=== PATIENT | male | born 1970 | race Caucasian/White ===

== ENCOUNTER → 2020-02-03 | Outpatient (CLI) | payer OTHER, MEDICAID | END | disposition home or self-care (01) | LOC: NPLAB 16:42 | PROVIDERS: ATTEND Specialist | DX: Z20.828 Contact with and (suspected) exposure to other viral communicable diseases (principal) | CPT/HCPCS: 87426; 87635 ==

== ENCOUNTER 2020-02-06 20:56 | Emergency (ER) | payer OTHER ==
[~2020-02-06] VITALS: Ht 180.3 cm; Wt 115.7 kg
[2020-02-06 21:07] VITALS: BP 170/103
--- NOTE | 2020-02-06 21:07 | NUR ---
ARRIVAL PT ARRIVED VIA WHEELCHAIR TO ER 1 WITH C/O CHEST PAIN AND RIGHT SHOULDER PAIN. PT STATES CHEST PAIN SINCE SUNDAY AND HAS GOTTEN WORSE SINCE. PT STATES LEFT SIDE CHEST PAIN THAT RADIATES TO RIGHT SHOULDER AND NECK. PT IS DIAPHORETIC UPON ARRIVAL. EDP NOTIFIED OF ARRIVAL.
[2020-02-06] MEDS ORDERED: ASPIRIN PO STA (21:16)
[2020-02-06] MEDS ORDERED: ASPIRIN ONE (21:16)
--- NOTE | 2020-02-06 21:20 | PCM.EKG ---
[facility] Test Date: 2020-02-06 Test Time: 21:08:45 Pat Name: MIKE ROSEN Department: Room: Gender: M Supervisor Corduroy Cutting: MAHENDRA : 1970 Requested By: LUZ CABRERA Order Number: [id number] Reading MD: Luz CABRERA Measurements Intervals [place] Rate: 103 P: 53 AL: 162 QRS: 31 QRSD: 106 T: 19 QT: 343 QTc: 449 Interpretive Statements Sinus tachycardia Baseline wander in lead(s) II,III,aVR,aVF,V1,V2,V3,V4,V5,V6 No previous ECG available for comparison Electronically Signed On 02-09-2020 22:24:51 PHOTOGRAPHIC SPOTTER by Luz CABRERA Please click the below link to view image of tracing.
--- NOTE | 2020-02-06 21:24 | NUR ---
REASSESS PT STATES PAIN HAS DECREASED FROM 9 TO 5. STATES PAIN HAS NOW MOVED FROM SHOULDER TO BACK BUT STILL STATES PAIN HAS LESSENED.
[2020-02-06 21:26] LABS: BASOPHIL % 0.2 % (0.0-0.2); LYMPHOCYTES # 1.07 10^3/uL1 (1.0-4.8); LYMPHOCYTES % 9.9 % (24.0-44.0); MEAN CORP HGB 30.6 pg (26-34); MONOCYTES # 0.4 10^3/uL (0.3-0.8); MONOCYTES % 4.1 % (5.0-12.0); NEUTROPHIL # 9.2 10^3/uL (1.8-7.7); NEUTROPHILS % 85.2 % (41.0-85.0); PLATELET COUNT 319 10^3/uL (150-400); RED CELL DISTRIBUTION WIDTH 12.7 % (11.5-14.5)
[2020-02-06] MEDS ORDERED: NITROSTAT SL PRN (21:30)
[2020-02-06 21:52] LABS: ALANINE AMINOTRANSFERASE(ML) 97 U/L (12-78); ALKALINE PHOSPHATASE 103 U/L (50-136); ASPARTATE AMINO TRANSFERASE 33 U/L (0-35); CALCIUM 9.8 mg/dL (8.4-10.5); CARBON DIOXIDE 22.7 mmol/L (20.0-32); GLUCOSE 231 mg/dL (70-110)
--- NOTE | 2020-02-06 21:55 | ER.PDOC ---
General Chief Complaint: Chest Pain-Cardiac Nature Stated Complaint: CHEST & SHOULDER PAIN Time seen by MD: 21:54 Source: patient Exam Limitations: no limitations History of Present Illness Initial Comments Chest pain for 5 days, no cough but SOB Severity/Quality: moderate, sharp Radiation: shoulders Activities at Onset: none Prior CP/Workup: Cardiac Cath Nitro Today/Relief: 0.4 mg x 1 Aspirin Today: 325 mg x 1, Provided By ED Associated Symptoms: shortness of breath Past Medical History Medical History: high cholesterol, hypertension, other Surgical History: no surgical history Social History Smoking: non-smoker Alcohol Use: occassionally Drug Use: none Constitutional: no symptoms reported EENTM: no symptoms reported Respiratory: see HPI Cardiovascular: see HPI Gastrointestinal: no symptoms reported All Other Systems: Reviewed and Negative Physical Exam General Appearance: Obese HEENT: PERRL/EOMI, Normal ENT Inspection, TMs Normal, Pharynx Normal Neck: Non-Tender, Full Range of Motion, Supple, Normal Inspection Respiratory: chest non-tender, normal breath sounds, no respiratory distress, no accessory muscle use, rhonchi Cardiovascular: Normal Peripheral Pulses, Regular Rate, Rhythm, No Edema, No Gallop, No JVD, No Murmur Gastrointestinal: Normal Bowel Sounds, No Organomegaly, No Pulsatile Mass, Non Tender, Soft Extremities: Normal Range of Motion, Non-Tender, Normal Inspection, No Pedal E mary, No Calf Tenderness, Normal Capillary Refill Neurologic/Psychiatric: commission broker II-XII NML as Tested, No Motor/Sensory Deficits, Alert, Normal Mood/Affect, Oriented x 3 Skin: Normal Color, Warm/Dry Results/Orders Results/Orders Orders - LUZ CABRERA MD Aspirin (Aspirin) (02/06/20 21:16) Cbc With Auto Diff (02/06/20 21:16) Comprehensive Metabolic Panel (02/06/20 21:16) Creatine Kinase (02/06/20 21:16) Creatine Kinase Mb (02/06/20 21:16) Troponin I (02/06/20 21:16) Probnp B-Type Nurse Practitioner Home Assessments (02/06/20 21:16) PT (02/06/20 21:16) Partial Thromboplastin Time. (02/06/20 21:16) D-Dimer (02/06/20 21:16) Ekg-Routine (02/06/20 21:16) Nitroglycerin (Nitrostat) (02/06/20 21:30) Aspirin (Aspirin) (02/06/20 21:16) Arterial Blood Gas (02/06/20 21:25) Vital Signs Date Time Temp Pulse Resp B/P (MAP) Pulse Ox O2 Delivery O2 Flow Rate FiO2 02/06/20 21:07 98.2 99 22 170/103 (125) 99 Room Air 02/06/20 21:07 98.2 99 22 99 02/06/20 21:07 98.2 99 22 Administered Medications Medications (Trade) Dose Ordered Sig/Hector Route PRN Reason Start Time Stop Time Status Last Admin Dose Admin Aspirin (Aspirin) 325 mg STAT STAT PO 02/06/20 21:16 02/06/20 21:19 DC 02/06/20 21:21 325 MG Nitroglycerin (Nitrostat) 0.4 mg PRN PRN SL CHEST PAIN 02/06/20 21:30 03/07/20 21:29 02/06/20 21:21 0.4 MG Laboratory Tests Test 02/06/20 21:05 02/06/20 21:40 White Blood Count 10.8 10^3/uL (4.5-11.0) Red Blood Count 5.23 10^6/uL (4.50-5.90) Hemoglobin 16.0 g/dL (13.9-16.3) Hematocrit 47.2 % (37.0-53.0) Mean Corpuscular Volume 90.2 fL (78-100) Mean Corpuscular Hemoglobin 30.6 pg (26-34) Mean Corpuscular Hemoglobin Concent 33.9 g/dL (33-36.5) Red Cell Distribution Width 12.7 % (11.5-14.5) Platelet Count 319 10^3/uL (150-400) Mean Platelet Volume 10.3 fL (7.8-11.0) Neutrophils (%) (Auto) 85.2 % (41.0-85.0) H Lymphocytes (%) (Auto) 9.9 % (24.0-44.0) L Monocytes (%) (Auto) 4.1 % (5.0-12.0) L Neutrophils # (Auto) 9.2 10^3/uL (1.8-7.7) H Lymphocytes # (Auto) 1.07 10^3/uL1 (1.0-4.8) Monocytes # (Auto) 0.4 10^3/uL (0.3-0.8) Absolute Immature Granulocyte (auto 0.07 10^3 u/L (0-2) Absolute Eosinophils (auto) 0.0 10^3/uL (0.0-0.2) Immature Granulocytes % 0.60 % (0.00-0.50) H Eosinophils % 0.0 % (0.0-5.0) Basophils % 0.2 % (0.0-0.2) Basophils # 0.0 10^3/uL (0.0-0.1) Prothrombin Time 9.9 SEC (9.3-11.3) Prothrombin Time INR (Non-Therap) 1.0 Activated Partial Thromboplast Time 23.6 SEC (24.67-30.72) D-Dimer < 0.19 mg/L (0.19-0.49) L Sodium Level 140 mmol/L (132-145) Potassium Level 3.9 mmol/L (3.6-5.2) Chloride Level 105.0 mmol/L (96-109) Carbon Dioxide Level 22.7 mmol/L (20.0-32) Anion Gap 16.2 Blood Urea Nitrogen 22 mg/dL (7-18) H Creatinine 1.06 mg/dL (0.59-1.40) Estimated GFR () 89.8 (>/=60) Est GFR (CKD-EPI)(Non-Afr [place]) 74.3 (>/=60) BUN/Creatinine Ratio 20.0 Glucose Level 231 mg/dL (70-110) H Calcium Level 9.8 mg/dL (8.4-10.5) Total Bilirubin 0.4 mg/dL (0.2-1.0) Aspartate Amino Transferase (AST) 33 U/L (0-35) Alanine Aminotransferase (ALT) 97 U/L (12-78) H Alkaline Phosphatase 103 U/L (50-136) Total Creatine Kinase 64 U/L (39-308) Creatine Kinase MB 0.9 ng/mL (0.5-3.6) Troponin I < 0.02 ng/mL (0.00-0.05) Pro-B-Type Natriuretic Peptide 14 pg/mL (0-125) Total Protein 8.0 g/dL (6.4-8.2) Albumin 4.6 g/dL (3.4-5.0) Globulin 3.4 Albumin/Globulin Ratio 1.352 Blood Gas Sample Site LEFT RADIAL ARTERY Blood pH 7.513 (7.350-7.450) Blood Gas PCO2 22.4 mmHg (35.0-45.0) L Blood Gas PO2 78.1 mmHg (80.0-100.0) L Blood Gas HCO3 17.6 mmol/L (22.0-26.0) L Blood Gas Base Excess -3.0 mmol/L (-2.0-2.0) L Tucker Test POSITIVE Arterial Blood Oxygen Saturation 96.4 % (94.0-97.00) Deoxyhemoglobin 3.6 % (0.0-5.0) Carboxyhemoglobin 0 % (0.0-3.9) Methemoglobin 0.3 % (0.00-5.0) Total Hemoglobin 15.4 % (12.0-17.8) Total Oxygen Concentration 20.8 % (13.5-17.5) H Blood Gas Temperature 37 FiO2 21 % (20-101) Total Carbon Dioxide 18.3 mmol/L (23-27) L Progress Progress CT Chest: :Variable lung findings, ranging from ground-glass opacities to patchy regions of consolidation and organizing pneumonia. Question risk factors for COVID-19 pneumonia, other infectious processes are in the differential. Involvement is rather mild Spoke with Dr. Griffiths who saw patient in the office 2 days ago. Patient has COVID-19 Pneumonia. He is currently On Z pack and Oxygen saturation is normal. Discussed with Dr. Griffiths who is okay with patient going home. His Ferritin level on labs done 3 days ago was high. Patient's [id number] has COVID-19. EKG/XRAY/CT/US EKG: NSR, no ST T wave changes EKG Comments: HR 103, sinus tachycardia ER DEPART Departure Time of Disposition: 22:34 Disposition: 01 HOME, SELF-CARE Impression: Primary Impression: Pneumonia due to COVID-19 virus Condition: Stable Referrals: MARINO GRIFFITHS MD (PCP) PRIMARY CARE PROVIDER Additional Instructions: Continue Z pack Vitamin C, D and Zinc OTC as directed F/U with your PCP in 2-3 days Return to ED if worsening or concerns Duration or Time Spent with Pa: 60 min RICK,LUZ Puga MD Feb 06, 2020 21:55
[2020-02-06 22:05] LABS: ABG PCO2 22.4 mmHg (35.0-45.0); ABG PH 7.513 (7.350-7.450); HCO3act 17.6 mmol/L (22.0-26.0); pO2 78.1 mmHg (80.0-100.0)
== END 2020-02-06 22:59 | disposition home or self-care (01) ==
LOC: ER 20:56
DX: U07.1 COVID-19 (principal); J12.89 Other viral pneumonia; I10 Essential (primary) hypertension; E78.00 Pure hypercholesterolemia, unspecified; Z79.82 Long term (current) use of aspirin
CPT/HCPCS: 36415; 36600; 80053; 82550; 82553; 82803; 83880; 84484; 85025; 85379; 85610; 85730; 93005; 99284

== ENCOUNTER → 2020-02-06 | Outpatient (CLI) | payer OTHER ==
--- NOTE | 2020-02-06 16:29 | DIREP ---
PROCEDURE:CT CHEST W/O COMPARISON:None. INDICATIONS:R05 COUGH, R50.9 FEVER TECHNIQUE:Helical sections through the chest were performed from the lung apices through the diaphragms without IV contrast. Sagittal and coronal reconstructions are obtained from source images. FINDINGS: LUNGS:There are mixed findings. There bilateral patchy opacities, some of which appear ground-glass. On the right side there is an "atoll" opacity right lower lobe. Findings are nonspecific, though correlation for risk factors of COVID-19 pneumonia recommended. Other viral illnesses and etiologies for what likely represents an infectious process. Central airways are patent. PLEURA:No effusion. No pneumothorax CARDIAC:Normal. No enlargement, pericardial thickening, or significant calcification. MEDIASTINUM:Normal. No mass or adenopathy. KHLOE:Normal. No mass or adenopathy. AORTA:Normal. No aneurysm. CHEST WALL:Normal. No mass or axillary adenopathy. LIMITED ABDOMEN:Normal. Limited images of the upper abdomen are unremarkable. BONES:Normal. No bony lesion or fracture. OTHER:Negative. CONCLUSION:Variable lung findings, ranging from ground-glass opacities to patchy regions of consolidation and organizing pneumonia. Question risk factors for COVID-19 pneumonia, other infectious processes are in the differential. Involvement is rather mild Dictated by: Elder Witt MD on 02/06/2020 at 04:22 PM
== END | disposition home or self-care (01) ==
LOC: RAD 15:19
PROVIDERS: ATTEND Specialist
DX: R05 Cough (principal); R50.9 Fever, unspecified
CPT/HCPCS: 71250

== ENCOUNTER 2020-03-09 06:05 | Day surgery (SDC) | payer OTHER ==
[2020-03-08 11:53] VITALS: BP 141/93
--- NOTE | 2020-03-08 12:06 | PCM.EKG ---
[facility] Test Date: 2020-03-08 Test Time: 13:03:25 Pat Name: MIKE ROSEN Department: Room: Gender: M Clinical Trial Coordinator: JOSEFA : 1970 Requested By: MARINO BURROWS Order Number: [id number] Reading MD: Measurements Intervals Premium Rate: 66 P: 24 WV: 150 QRS: 40 QRSD: 100 T: 12 QT: 382 QTc: 400 Interpretive Statements Normal sinus rhythm Compared to ECG 02/06/2020 21:08:45 Sinus tachycardia no longer present Please click the below link to view image of tracing.
--- NOTE | 2020-03-08 13:45 | DIREP ---
PROCEDURE:CHEST 2 VIEWS COMPARISON:[facility], CT, CT CHEST W/O, 02/06/2020, 04:11 PM. INDICATIONS:PRE-OP HEART CATH, CAD, ABNORMAL STRESS TEST FINDINGS: LUNGS/PLEURA:No consolidated pneumonia or pleural effusion is seen. Small ground-glass opacities demonstrated within both lungs on CT scan of 02/06/2020 are not definitely visualized. VASCULATURE:Normal. Unremarkable pulmonary vasculature. CARDIAC:Normal. No cardiac silhouette abnormality or cardiomegaly. MEDIASTINUM:Normal. No visible mass or adenopathy. BONES:Mild thoracic spondylosis is noted. OTHER:Negative. CONCLUSION: 1. No acute cardiopulmonary disease is demonstrated. 2. Previously demonstrated ground-glass infiltrates likely associated with Covid 19 viral pneumonia are not visible on today's exam. Dictated by: Krish Israel M.D. on 03/08/2020 at 01:42 PM
[2020-03-09] VITALS (11 sets, daily range): BP systolic 105–140; BP diastolic 69–89
[~2020-03-09] VITALS: Ht 182.9 cm; Wt 115.7 kg
[~2020-03-09 06:05] MED LIST: AMLO5TAB4 PO; METO-236 PO; METO50TA6 PO; MULT-235 PO; NS 1000ML 1,000 ML IV SCH; NS 1000ML 1,000 ML ONE; PHENERGAN ONE; PHENERGAN PO ONE; PRAM0.255 PO; PRAV40TA2 PO; VALIUM ONE; VALIUM PO ONE; VALIUM PO STA
[2020-03-09] MEDS ORDERED: NS 1000ML 1,000 ML ONE (06:30)
[2020-03-09] MEDS ORDERED: HEPARIN ONE (06:31)
[2020-03-09] MEDS ORDERED: SUBLIMAZE ONE (06:31)
[2020-03-09] MEDS ORDERED: VERSED ONE (06:31)
[2020-03-09] MEDS ORDERED: XYLOCAINE ONE (06:32)
--- NOTE | 2020-03-09 08:48 | CNH ---
DATE OF CONSULTATION: 03/09/2020 HEART CATH REPORT INDICATIONS: A 49-year-old male with hypertension, hypertensive heart disease, abnormal myocardial perfusion scan, dyslipidemia, obesity, recent COVID exposure improved, shortness of breath, unclear chest x-ray, abnormal myocardial perfusion scan with medium size inferoposterior and adjacent moderate persistent hypoperfusion, ejection fraction was intact. Increased end-diastolic volume. POST-CATH DIAGNOSES: Left main appears to be patent. LAD proximally has about 30% luminal irregularity long segment and the LAD is a 4-4.5 mm vessel and distal tapering is noted. No evidence of any flow obstruction is noted. Circumflex is a large codominant vessel, 4.5 mm vessel with an obtuse marginal branch, fully patent. Right coronary artery is a large vessel, appears to be fully patent. Left ventricle is mildly dilated with an LVEDP of about 15-20 mm with mild global hypokinesis, 45% ejection fraction. ANESTHESIA: 2% lidocaine. PREOPERATIVE MEDICATIONS: Phenergan 50 mg p.o., Valium 2.5 mg p.o., Versed 1 mg IV, fentanyl 25 mcg IV. ANTICOAGULATION: Heparin 2000 units intra-arterially, 2000 units in the flush solution, 1000 units in the dye solution. Dye used is Omnipaque. Total amount of the dye is 90 mL. CATHETERS: JL4 6-Kyrgyz, JR4 6-[place]gyz, 6-[place] angled pigtail catheter. ARTERIAL TIME: 8 minutes. FLUOROSCOPY TIME: 2.3 minutes. PROCEDURES: Left heart catheterization, bilateral selective coronary arteriography, left ventriculography by right femoral Ashly approach. Under local anesthesia, right femoral artery was punctured percutaneously by arterial needle, guide wire passed in right femoral artery, 6-[place] Cordis sheath introduced, side port of the sheath used for femoral arterial pressure monitoring. Sheath anchored with suture. Left Ashly catheter introduced over guide wire into ascending aorta left coronary artery cannulated and left coronary angiography performed in BHUTANESE and DIAZ projections with craniocaudal applications to visualize all branches. Left catheter exchanged for right coronary catheter and right coronary angiography performed in BHUTANESE and DIAZ. This catheter exchanged for 6-Kyrgyz pigtail catheter and catheter crossed the aortic valve and left ventricular LVEDP measured and LV gram performed in 30 degrees DIAZ view with 30 mL Omnipaque dye and panning of descending aorta attempted. Patient tolerated procedure well. No complications of procedure. Angio-Seal deployed for hemostasis. LVEDP 20 mm, LV pressure is 157/20, femoral artery pressure 145/75 with a mean of 95. No gradient across the aorta on pullback of the central catheter. FINAL CONCLUSION: Non-flow obstructive proximal left anterior descending 30% luminal irregularity without any flow significant coronary artery disease with a large left anterior descending, circumflex, and right coronary vessel with left ventricle showing mild global hypokinesis due to hypertension, hypertensive heart disease with ejection fraction of 45%. RECOMMENDATIONS: Optimization of medical therapy with blood pressure control, lipid control, exercise, diet and weight loss. Laxmichand MD Aye DR: MUNA/morgan JOB# [id number]
[2020-03-09 10:33] LABS: CALCIUM 9.3 mg/dL (8.4-10.5); CARBON DIOXIDE 28.6 mmol/L (20.0-32)
--- NOTE | 2020-03-10 10:55 | CCLR ---
DATE OF PROCEDURE: 03/09/2020 HEART CATH REPORT INDICATIONS: A 49-year-old male with hypertension, hypertensive heart disease, abnormal myocardial perfusion scan, dyslipidemia, obesity, recent COVID exposure improved, shortness of breath, unclear chest x-ray, abnormal myocardial perfusion scan with medium size inferoposterior and adjacent moderate persistent hypoperfusion, ejection fraction was intact. Increased end-diastolic volume. POST-CATH DIAGNOSES: Left main appears to be patent. LAD proximally has about 30% luminal irregularity long segment and the LAD is a 4-4.5 mm vessel and distal tapering is noted. No evidence of any flow obstruction is noted. Circumflex is a large codominant vessel, 4.5 mm vessel with an obtuse marginal branch, fully patent. Right coronary artery is a large vessel, appears to be fully patent. Left ventricle is mildly dilated with an LVEDP of about 15-20 mm with mild global hypokinesis, 45% ejection fraction. ANESTHESIA: 2% lidocaine. PREOPERATIVE MEDICATIONS: Phenergan 50 mg p.o., Valium 2.5 mg p.o., Versed 1 mg IV, fentanyl 25 mcg IV. ANTICOAGULATION: Heparin 2000 units intra-arterially, 2000 units in the flush solution, 1000 units in the dye solution. Dye used is Omnipaque. Total amount of the dye is 90 mL. CATHETERS: JL4 6-Citizen Of [place], JR4 6-Citizen [place], 6-[place] angled pigtail catheter. ARTERIAL TIME: 8 minutes. FLUOROSCOPY TIME: 2.3 minutes. PROCEDURES: Left heart catheterization, bilateral selective coronary arteriography, left ventriculography by right femoral Ashly approach. Under local anesthesia, right femoral artery was punctured percutaneously by arterial needle, guide wire passed in right femoral artery, 6-Citizen [place] Cordis sheath introduced, side port of the sheath used for femoral arterial pressure monitoring. Sheath anchored with suture. Left Ashly catheter introduced over guide wire into ascending aorta left coronary artery cannulated and left coronary angiography performed in ROMANIAN and DIAZ projections with craniocaudal applications to visualize all branches. Left catheter exchanged for right coronary catheter and right coronary angiography performed in ROMANIAN and DIAZ. This catheter exchanged for 6-Citizen [place] pigtail catheter and catheter crossed the aortic valve and left ventricular LVEDP measured and LV gram performed in 30 degrees DIAZ view with 30 mL Omnipaque dye and panning of descending aorta attempted. Patient tolerated procedure well. No complications of procedure. Angio-Seal deployed for hemostasis. LVEDP 20 mm, LV pressure is 157/20, femoral artery pressure 145/75 with a mean of 95. No gradient across the aorta on pullback of the central catheter. FINAL CONCLUSION: Non-flow obstructive proximal left anterior descending 30% luminal irregularity without any flow significant coronary artery disease with a large left anterior descending, circumflex, and right coronary vessel with left ventricle showing mild global hypokinesis due to hypertension, hypertensive heart disease with ejection fraction of 45%. RECOMMENDATIONS: Optimization of medical therapy with blood pressure control, lipid control, exercise, diet and weight loss. Laxmichand MD Aye DR: MUNA/morgna JOB# [id number]
== END 2020-03-09 11:12 | disposition home or self-care (01) ==
LOC: SDC 06:05
PROVIDERS: ATTEND Specialist
DX: I25.118 Atherosclerotic heart disease of native coronary artery with other forms of angina pectoris (principal); I11.9 Hypertensive heart disease without heart failure; E78.5 Hyperlipidemia, unspecified; E66.9 Obesity, unspecified; Z82.49 Family history of ischemic heart disease and other diseases of the circulatory system; Z83.438 Family history of other disorder of lipoprotein metabolism and other lipidemia; Z79.899 Other long term (current) drug therapy; Z68.35 Body mass index [BMI] 35.0-35.9, adult
CPT/HCPCS: 36415 ×2; 71046; 80053; 85610; 85730; 93005; 93458; 99152; C1760; C1894 ×3; J1644 ×2; J2250; J3010; J7030 ×2; Q9967; C1769

== ENCOUNTER → 2020-03-31 | Outpatient (CLI) | payer OTHER ==
[~2020-03-31] MED LIST changes: -NS 1000ML 1,000 ML IV SCH; -NS 1000ML 1,000 ML ONE; -PHENERGAN ONE; -PHENERGAN PO ONE; -VALIUM ONE; -VALIUM PO ONE; -VALIUM PO STA
--- NOTE | 2020-03-31 17:01 | DIREP ---
PROCEDURE:US SOFT TISSUE COMPARISON:None. INDICATIONS:R10.31 RLQ PAIN, rt groin inguinal canal palp,radiating pain x2d TECHNIQUE:Sonography of the soft tissues of the right inguinal region was performed using grayscale and color Doppler imaging. FINDINGS: MASSES:None. FLUID COLLECTIONS:None. OTHER:Multiple lymph nodes with fatty jannet are identified within the right inguinal region, with the largest measuring 1.6 x 0.7 x 1.8 cm and 2.1 x 0.7 x 0.8 cm. CONCLUSION:Multiple lymph nodes are demonstrated in the right inguinal region as described above. Dictated by: ERICK Physician on 03/31/2020 at 04:43 PM ac
--- NOTE | 2020-03-31 18:27 | DIREP ---
PROCEDURE:US TESTICULAR WITH DOPPLER COMPARISON:None. INDICATIONS:N50.89 DISORDERS OF THE MALE GENITAL ORGANS, rt testicle lump x2yrs, growing, painful, enlarged TECHNIQUE:The scrotum was evaluated with roach scale, spectral analysis, and color duplex doppler sonography. FINDINGS: RIGHT TESTICLE: Measures 5.0 x 3.8 x 3.6 cm. No mass or microcalcifications. LEFT TESTICLE: Measures 4.6 x 2.9 x 3.7 cm. No mass or microcalcifications. EPIDIDYMIS:The right epididymal head measures 2.9 cm. The left epididymal head measures 1.1 cm. Cysts are identified at the level of the right epididymal head measuring 4.3 x 2.7 x 3.0 cm, 1.6 x 1.1 x 1.2 cm, and 1.9 x 1.1 x 1.4 cm. OTHER:A large left varicocele is noted. DOPPLER FLOW: Symmetric waveforms with sustained diastolic flow. CONCLUSION:1. Large left varicocele. 2. Multiple large right epididymal cysts. Dictated by: ERICK Physician on 03/31/2020 at 05:32 PM ac
== END | disposition home or self-care (01) ==
LOC: RAD 14:22
PROVIDERS: ATTEND Surgery
DX: N50.3 Cyst of epididymis (principal); I86.1 Scrotal varices; R10.31 Right lower quadrant pain; N50.89 Other specified disorders of the male genital organs; C77.8 Secondary and unspecified malignant neoplasm of lymph nodes of multiple regions
CPT/HCPCS: 76705; 76870

== ENCOUNTER → 2022-01-26 | Outpatient (CLI) | payer OTHER | END | disposition home or self-care (01) | LOC: NPLAB 13:07 | PROVIDERS: ATTEND Specialist | DX: R05.1 Acute cough (principal); Z20.822 Contact with and (suspected) exposure to COVID-19 | CPT/HCPCS: 87637 ==